=== PATIENT | female | born 1980 | race American Indian/Alaskan Native ===

== ENCOUNTER 2023-05-12 03:57 | Day surgery (SDC) | payer OTHER ==
[2023-05-09 08:53] VITALS: BMI 43.2
[2023-05-12 08:24] LABS: EOS % 2.3 % (0-4.5); HEMATOCRIT 36.4 % (32.4-45.2); HEMOGLOBIN 11.1 GM/dL (10.7-15.3); INR 1.06 (0.83-1.09); MCH 20.8 pg (25.7-33.7); MCHC 30.4 g/dl (32.0-36.0); MEAN CELL VOLUME 68.5 fl (80-96); MEAN PLT VOLUME 8.5 fl (7.5-11.1); MONO % 6.9 % (3.8-10.2); NEUT % 60.8 % (42.8-82.8); PLATELET COUNT 360 10^3/uL (134-434); PROTHROMBIN TIME (PATIENT) 12.3 SEC (9.7-13.0); RBC 5.32 M/mm3 (3.60-5.2); RDW 15.2 % (11.6-15.6); WHITE BLOOD COUNT 5.9 K/mm3 (4.0-10.0)
[2023-05-12 08:33] LABS: POTASSIUM 4.3 mmol/L (3.5-5.1)
[2023-05-12 08:36] LABS: ALBUMIN 3.2 g/dl (3.4-5.0); BLOOD UREA NITROGEN 31.9 mg/dL (7-18); CALCIUM 8.9 mg/dL (8.5-10.1)
[2023-05-12 08:39] LABS: CREATININE 1.5 mg/dL (0.55-1.3)
[2023-05-12 08:41] LABS: BILIRUBIN,TOTAL 0.5 mg/dL (0.2-1)
[2023-05-12 10:13] LABS: ANISOCYTOSIS 3+; MACROCYTOSIS 0
[2023-05-12] MEDS ORDERED: FENTANYL CITRATE/PF 50 MCG/ML VIAL ONE ×2 (12:39→13:05)
[2023-05-12] MEDS ORDERED: FENTANYL CITRATE/PF 50 MCG/ML VIAL IVPUSH ONE ×2 (12:42→13:07)
[2023-05-12 13:36] VITALS: RESP 16
[2023-05-12 15:06] LABS: BF GLUCOSE (CSF ONLY) 75 mg/dL (40-70)
[2023-05-12 15:11] LABS: CSF COLOR COLORLESS (COLORLESS)
[2023-05-12 15:12] LABS: CSF APPEARANCE CLEAR (CLEAR); CSF WBC 1 mm3 (0-5)
[2023-05-12 16:28] VITALS: BP 111/56; PULSE 68; TEMP 97
== END 2023-05-12 17:00 | disposition home or self-care (01) ==
LOC: JRADIR 03:57
PROVIDERS: ATTEND Psychiatry & Neurology Neurology
PROC: 009U3ZX Drainage of Spinal Canal, Percutaneous Approach, Diagnostic (ICD-10-PCS; principal; 2023-05-12)
PROC: B01BZZZ Fluoroscopy of Spinal Cord (ICD-10-PCS; 2023-05-12)
DX: G35 Multiple sclerosis (principal)
CPT/HCPCS: 36415; 62272; 80053; 81025; 82784; 82787; 82945; 82962; 83873; 83916; 84157; 84703; 85025; 85610

== ENCOUNTER 2024-04-22 15:04 | Emergency (ER) | payer OTHER ==
[2024-04-22 15:16] VITALS: BP 104/67; PULSE 79; RESP 16; TEMP 97.9; BMI 39.1
[2024-04-22] MEDS ORDERED: LIDOCAINE 4% PATCH TP ONE (15:58)
[2024-04-22] MEDS ORDERED: KETOROLAC TROMETHAMINE 30 MG/1 ML VIAL ONE (15:59)
[2024-04-22] MEDS ORDERED: METHOCARBAMOL 500 MG TABLET ONE (15:59)
[2024-04-22] MEDS ORDERED: ACETAMINOPHEN 500 MG TABLET (FP) ONE (15:59)
[2024-04-22] MEDS: KETOROLAC TROMETHAMINE 30 MG/1 ML VIAL IM ONE (16:10)
[2024-04-22] MEDS: METHOCARBAMOL 500 MG TABLET PO ONE (16:10)
[2024-04-22] MEDS: LIDOCAINE 4% PATCH TP ONE (16:10)
[2024-04-22] MEDS: ACETAMINOPHEN 500 MG TABLET (FP) PO ONE (16:10)
[2024-04-22 18:59] LABS: HIV INTERPRETATION NEGATIVE (NEGATIVE)
== END 2024-04-22 17:06 | disposition home or self-care (01) ==
LOC: JERFT 15:04
PROC: 3E0233Z Introduction of Anti-inflammatory into Muscle, Percutaneous Approach (ICD-10-PCS; principal; 2024-04-22)
DX: M79.604 Pain in right leg (principal); M25.512 Pain in left shoulder; M25.561 Pain in right knee; M79.651 Pain in right thigh; M79.18 Myalgia, other site; W18.39XA Other fall on same level, initial encounter
CPT/HCPCS: 36415; 86803; 87389; 99284-25